=== PATIENT | male | born 1960 | race Caucasian/White ===

== ENCOUNTER 2016-12-31 09:19 | Emergency (ER) | payer BC ==
--- NOTE | ~2016-12-31 | CR181 ---
[facility] A Service of [facility] RADIOLOGY TEXT RESULTS PATIENT: NIKITA GAMINO LOCATION: SED : 58 UNIT #: [id number] AGE: [address]: Max Mcfarland MD SEX: M ORDER DR: [id number] [place] [id number] E MR#: [id number] Acc #: [id number] NAME: NIKITA GAMINO : 1960 SEX: M STUDY DATE/TIME: 12/31/2016 09:46 UNIT: SED ROOM: STUDY DESCRIPTION: CR Lumbar Spine 2 or 3 Views Attending Physician: Max Mcfarland M.D. Ordering Physician: Max Mcfarland M.D. Primary Care Physician: Randy Mcnulty M.D. MEDICAL IMAGING REPORT This report is preliminary unless electronic signature is present. EXAM Lumbar spine series 12/31/2016 0946 hours HISTORY 56-year-old man complaining of low back pain with bilateral leg pain for 2 weeks, swelling in right calf. No reported injury. COMPARISON None. FINDINGS AP and lateral views of the lumbar spine and a cone lateral view of the lumbosacral junction were performed. There is very subtle leftward scoliosis centered at L2. There is endplate spurring at the superior endplates of L4-L5. There is very mild vertebral body height loss at the superior endplate of L5 of indeterminate age. Acute compression fracture cannot be excluded. There is no other fracture or malalignment. IMPRESSION There is endplate spurring at the anterior-superior endplates of L4-L5. There is mild vertebral body height loss at the superior endplate of L5 which could indicate a compression fracture. This is of indeterminate age. There is no malalignment. STAT * RESULT Dictated by... Maren Castaneda M.D. [facility] A Service of [facility] RADIOLOGY TEXT RESULTS PATIENT: NIKITA GAMINO LOCATION: SED : 58 UNIT #: [id number] AGE: [address]: Max Mcfarland MD SEX: M ORDER DR: THIS IS AN ELECTRONICALLY VERIFIED REPORT Maren Castaneda M.D. at 12/31/2016 2:27 PM CURT/serina TD: 12/31/2016 10:11 JOB #: [id number] MEDICAL IMAGING REPORT Page 1 of 1
--- NOTE | ~2016-12-31 | US85 ---
[facility] Service of [facility] RADIOLOGY TEXT RESULTS PATIENT: NIKITA GAMINO LOCATION: SED : 58 UNIT #: [id number] AGE: [address]: Max Mcfarland MD SEX: M ORDER DR: [id number] [address] [address] [id number] E MR#: [id number] Acc #: [id number] NAME: NIKITA GAMINO : 1960 SEX: M STUDY DATE/TIME: 12/31/2016 12:07 UNIT: SED ROOM: STUDY DESCRIPTION: [facility] Attending Physician: Max Mcfarland M.D. Ordering Physician: Max Mcfarland M.D. Primary Care Physician: Randy Mcnulty M.D. MEDICAL IMAGING REPORT This report is preliminary unless electronic signature is present. EXAM Right lower extremity venous ultrasound, 12/31/16 HISTORY Right lower extremity edema for 2 weeks. FINDINGS The venous system of the right lower extremity was evaluated from the common femoral vein down to the trifurcation veins, and there is flow and compression at every level. A slightly prominent lymph nodes measuring 17 x 10 mm is identified in the right groin. IMPRESSION 1. There is a mildly prominent lymph node in the right groin with normal fatty hilum that measures 17 mm in maximum dimension. It is probably normal. 2. No evidence of deep venous thrombosis. Dictated by... Cristian Knott M.D. THIS IS AN ELECTRONICALLY VERIFIED REPORT Cristian Knott M.D. at 12/31/2016 3:37 PM MAMI/siddhartha TD: 12/31/2016 14:29 JOB #: [id number] [facility] A Service [facility] RADIOLOGY TEXT RESULTS PATIENT: NIKITA GAMINO LOCATION: SED : 58 UNIT #: [id number] AGE: [address]: Max Mcfarland MD SEX: M ORDER DR: MEDICAL IMAGING REPORT Page 1 of 1
[~2016-12-31 09:19] MED LIST: ORENCIA125 MG/1 M; VITAMIN B122500 MC1
== END 2016-12-31 13:59 | disposition home or self-care (01) ==
LOC: SED 09:19
DX: S39.012A Strain of muscle, fascia and tendon of lower back, initial encounter (principal); R60.0 Localized edema; X58.XXXA Exposure to other specified factors, initial encounter; Y92.9 Unspecified place or not applicable
CPT/HCPCS: 72100; 93971; 99284

== ENCOUNTER 2017-01-05 08:19 | Emergency (ER) | payer BC ==
--- NOTE | ~2017-01-05 | CT12 ---
[facility] A Service of [facility] RADIOLOGY TEXT RESULTS PATIENT: NIKITA GAMINO LOCATION: JOSIE : 58 UNIT #: [id number] AGE: [address]: Kishor Stout MD SEX: M ORDER DR: [id number] [facility] [address] [place], [place] [address] [id number] E MR#: [id number] Acc #: [id number] NAME: NIKITA GAMINO. : 1960 SEX: M STUDY DATE/TIME: 01/05/2017 9:41 UNIT: JOSIE ROOM: STUDY DESCRIPTION: CT Angio Abd Pelv Runoff Attending Physician: Kishor Stout M.D. Ordering Physician: Courtney Hopkins P.A.-C. Primary Care Physician: Randy Mcnulty M.D. MEDICAL IMAGING REPORT This report is preliminary unless electronic signature is present EXAM CTA AIF with contrast DATE 01/05/2017 HISTORY 56-year-old male with complaints of right lower extremity swelling for 6 days. Back pain for 8 days. COMPARISON Right lower extremity Doppler venous ultrasound 12/31/2016. No previous CTA or vascular study at this institution for comparison. PROCEDURE 2 mm axial images from the lung bases through the plantar surfaces of the feet after IV contrast administration in the arterial phase. 3D sagittal and coronal MIP reformatted images were obtained at a dedicated workstation. FINDINGS ARTERIAL ANATOMY: Normal caliber of the included descending thoracic aorta and abdominal aorta without aneurysm or dissection. No appreciable atherosclerotic plaquing is seen within the abdominal aorta, nor within the common iliac, internal or external iliac or common femoral arteries. No flow limiting stenosis is seen. The celiac artery, SMA, single bilateral renal arteries and MALIK are all widely patent. Bilateral common femoral, femoral, popliteal arteries and trifurcating vessels are patent to the level of the foot. No right or left lower extremity arterial flow-limiting stenosis or thrombosis or aneurysm is seen. [facility] A Service of [facility] RADIOLOGY TEXT RESULTS PATIENT: NIKITA GAMINO LOCATION: JOSIE : 58 UNIT #: [id number] AGE: [address]: Kishor Stout MD SEX: M ORDER DR: ADDITIONAL ABDOMEN FINDINGS: Mild emphysematous changes are present lung bases without consolidation. Not mentioned above, there does appear to be aneurysmal dilation of the aortic root measuring up to approximately 4.6 cm in the coronal plane. The liver, gallbladder, spleen, pancreas, and kidneys are within normal limits. Extensive diverticular changes are present within the colon without evidence of acute diverticulitis. The left adrenal gland is normal. 1.8 x 1.5 cm nonspecific right adrenal nodule is seen, of higher density than can be confirmed for an adenoma on this postcontrast exam. PELVIS FINDINGS: There is marked urinary bladder distension with fluid, with the urinary bladder distended to the level of the umbilicus. The prostate gland does not appear enlarged and the rectum is normal. LOWER EXTREMITY FINDINGS: There is a mildly prominent right inguinal lymph node which is nonspecific and may be reactive, measuring 1.5 x 1.1 cm. Right lower extremity edema is seen, diffusely, greatest in the region of the calf. There is a questionable right popliteal fossa cyst measuring 1.9 x 1.3 cm. IMPRESSION 1. Marked right extremity soft tissue swelling greatest in the calf region. 2. A probable small popliteal fossa cyst on the right measuring 1.3 x 1.9 cm. 3. Normal CTA of the abdomen and lower extremities. No aneurysm, flowing stenosis or thrombosis is identified. 4. Marked urinary bladder distension with fluid, but no perivesical inflammation or outlet obstructing abnormality is seen. 5. Probable reactive right inguinal lymph node measuring 1.7 x 1.1 cm. 6. 1.8 cm right adrenal nodule. Consider correlation to MRI abdomen without and with contrast adrenal mass protocol on a nonemergent basis. 7. Aneurysmal dilation of the aortic root at the sinuses of Valsalva measuring up to 4.6 cm. 8. Preliminary report was provided by Dr. Landers on 01/05/2017 at 12:06. Dictated by... Anushka Sainz M.D. THIS IS AN ELECTRONICALLY VERIFIED REPORT Anushka Sainz M.D. at 01/06/2017 4:20 AM LLBeto/williams TD: 01/06/2017 03:22 JOB #: [id number] MEDICAL IMAGING REPORT Page 1 of 1 COPY
--- NOTE | ~2017-01-05 | EKG ---
PATIENT: NIKITA GAMINO UNIT #: [id number] Ventricular Rate: 97 BPM Atrial Rate: 97 BPM P-R Interval: 190 ms QRS Duration: 94 ms Q-T Interval: 372 ms QTC Calculation(Bezet): 472 ms P [place]: 47 degrees Calculated R [place]: -7 degrees Calculated T [place]: -11 degrees Diagnosis Line: Normal sinus rhythm Diagnosis Line: Nonspecific ST and T wave abnormality Diagnosis Line: Abnormal ECG Diagnosis Line: No previous ECGs available Diagnosis Line: Confirmed by CHRISSY DICKEY MD ([id number]) on Diagnosis Line: 01/06/2017 8:51:15 AM INTERPRETING MD: JD
[2017-01-05 08:33] LABS: BASOPHIL% 0.4 % (0-2.5); DIFF IND NO; EOSINOPHIL% 0.6 % (0.0-7.0); HEMATOCRIT 34.8 % (38.0-50.0); HEMOGLOBIN 11.9 gm/dL (13.0-16.0); LYMPHOCYTE# 0.3 X10e3 (1.0-3.5); LYMPHOCYTE% 5.7 % (17.0-45.0); MEAN CELL VOLUME 94.6 FL (83-96); MEAN CORPUSCULAR HEMOGLOBIN 32.2 PG (28-34); MEAN CORPUSCULAR HGB CONC 34.1 g/dL (30-36); MEAN PLATELET VOLUME 7.2 FL (6.5-11.5); MONOCYTE# 0.4 X10e3 (0-1.0); MONOCYTE% 8.2 % (3.0-12.0); NEUTROPHIL# 4.5 X10e3 (1.5-7.1); NEUTROPHIL% 85.1 % (40-75); PLATELET COUNT 214 X10e3 (140-420); RED BLOOD COUNT 3.68 X10e (3.90-5.60); RED CELL DISTRIBUTION WIDTH 12.6 % (11.0-15.5); WHITE BLOOD COUNT 5.3 X10e3 (4.0-10.5)
[2017-01-05 08:45] LABS: POC - TROPONIN <0.05 ng/mL (<=0.05)
[2017-01-05 08:46] LABS: INR 1.2; PARTIAL THROMBOPLASTIN TIME 31.6 SECONDS (23.5-31.3); PROTHROMBIN TIME (PATIENT) 12.5 SECONDS (9.6-11.5)
[2017-01-05 09:07] LABS: ALBUMIN SERUM 3.5 g/dL (3.5-5.0); BILIRUBIN, DIRECT 0.5 mg/dL (0.0-0.2); BILIRUBIN,INDIRECT 1.3 mg/dL (0.0-0.9); BILIRUBIN,TOTAL 1.8 mg/dL (0.2-2.0); CALCIUM SERUM 8.6 mg/dL (8.4-10.2); CREATININE SERUM 1.1 mg/dL (0.6-1.4); GLOM FILT RATE Estimated 74.1 mL/min (>60); POTASSIUM 3.6 mmol/L (3.5-5.1); PROTEIN TOTAL SERUM 6.9 g/dL (6.0-8.3)
== END 2017-01-05 12:36 | disposition home or self-care (01) ==
LOC: CED 08:19
PROVIDERS: Physician Assistant
DX: L03.115 Cellulitis of right lower limb (principal); L03.116 Cellulitis of left lower limb; Z98.890 Other specified postprocedural states
CPT/HCPCS: 36415; 73706; 75635; 80048; 80076; 82550; 82553; 83880; 84484; 85025; 85610; 85730; 93005; 96374; 96375; 99284; J2270; J2405; Q9967

== ENCOUNTER 2017-01-10 11:28 | Inpatient (IN) | payer BC ==
--- NOTE | ~2017-01-10 | MR113 ---
[facility] A Service of [facility] RADIOLOGY TEXT RESULTS PATIENT: NIKITA GAMINO LOCATION: [facility] 575-01 : 58 UNIT #: [id number] AGE: [address]: Galileo Acevedo MD SEX: M ORDER DR: [id number] [facility] [address] [place], [place] [address] [id number] I MR#: [id number] Acc #: [id number] NAME: NIKITA GAMINO : 1960 SEX: M STUDY DATE/TIME: 01/15/2017 17:40 UNIT: [facility] ROOM: [facility] STUDY DESCRIPTION: MR Lumbar Wo Contrast Attending Physician: Galileo Acevedo M.D. Ordering Physician: Galileo Acevedo M.D. Primary Care Physician: Randy Mcnulty M.D. MRI CENTER REPORT This report is preliminary unless electronic signature is present. EXAM MRI of the lumbar spine without contrast HISTORY Complains of low back pain x1 week from lying down. History of gout within the feet. History of chronic back pain and intermittent numbness in legs. Abnormal x-ray lumbar spine suggests L5 compression fracture. FINDINGS Multiplanar multiecho imaging was performed of the lumbar spine utilizing a high field magnet dedicated protocol. Examination demonstrates abnormal marrow signal throughout the lumbar spine with cellular marrow possibly representing red marrow hyperplasia may be related to chronic disease. Correlate clinically for possible anemia. Normal spinal alignment. Small amount of marrow edema noted in the superior aspect of the L2 vertebral body. There are compression fractures involving the T12 and L5 vertebral bodies with about 40% loss of the central vertebral body height at T12 and close to 50% loss of central vertebral body height at L5. These represent biconcave compression fractures and suggests underlying osteoporosis. There is a small amount of edema involving both the T12 and L5 vertebral bodies which may suggest subacute fractures. There is normal termination of the conus. At T12-L1 the disc space is maintained. No spinal or foraminal stenosis. At L1-2 the disc space is maintained. No spinal or foraminal stenosis. At L2-3 the disc space is maintained. No spinal or foraminal stenosis. At L3-4 disc space is maintained, no spinal or foraminal stenosis. At L4-5 mild circumferential disc bulge with a slightly more prominent STS. [facility] A Service of [facility] RADIOLOGY TEXT RESULTS PATIENT: NIKITA GAMINO LOCATION: [facility] 575-01 : [birth year] UNIT #: [id number] AGE: [address]: Galileo Acevedo MD SEX: M ORDER DR: right foraminal and extraforaminal component. This may impinge the exiting right L4 nerve root. At L5-S1 the disc space is maintained. No spinal or foraminal stenosis. Posterior elements unremarkable. Paravertebral soft tissues unremarkable. IMPRESSION 1. T12 and L5 biconcave compression fracture deformities. Presence of some marrow edema suggests that these may be subacute in nature. I suspect these are on the basis of underlying osteoporosis, possibly related to chronic alcoholism. 2. Diffuse cellular marrow suggests red marrow hyperplasia and may be related to chronic alcoholism. Correlate for other etiologies for anemia. 3. Mild circumferential disc bulging L4-5 with a slightly greater right foraminal and extraforaminal component could lead to impingement of the exiting right L4 nerve root. Dictated by... Yaneth Prabhakar M.D. THIS IS AN ELECTRONICALLY VERIFIED REPORT Yaneth Prabhakar M.D. at 01/16/2017 10:33 PM Callie TD: 01/16/2017 04:39 JOB #: [id number] MRI CENTER REPORT Page 1 of 1 COPY
--- NOTE | ~2017-01-10 | US67 ---
[facility] A Service of [facility] RADIOLOGY TEXT RESULTS PATIENT: NIKITA GAMINO LOCATION: [facility] [address] : 58 UNIT #: [id number] AGE: [address]: Marissa Meyer MD SEX: M ORDER DR: [id number] [facility] [address] [place], [place] [address] [id number] I MR#: [id number] Acc #: [id number] NAME: NIKITA GAMINO. : 1960 SEX: M STUDY DATE/TIME: 01/11/2017 14:13 UNIT: [facility] ROOM: [facility] STUDY DESCRIPTION: US Gallbladder Attending Physician: Marissa Meyer M.D. Ordering Physician: Marissa Meyer M.D. Primary Care Physician: Randy Mcnulty M.D. MEDICAL IMAGING REPORT This report is preliminary unless electronic signature is present EXAM Right upper quadrant abdominal ultrasound. INDICATIONS Jaundice and back pain for the past 2 weeks. PROCEDURE Pollock-scale and Doppler imaging, right upper quadrant of the abdomen. COMPARISON 01/03/2015 FINDINGS Liver is approximately 12.7 cm in length. No liver mass is seen on submitted images. Right kidney measures 9.4 cm. Pancreas is obscured by bowel gas and not well seen. The gallbladder is not well seen on this study. IMPRESSION Pancreas and gallbladder are not well seen on this study. Otherwise, no definite acute findings. Dictated by... Juarez Cornelius M.D. THIS IS AN ELECTRONICALLY VERIFIED REPORT Juarez Cornelius M.D. at 01/14/2017 7:45 AM ALCIDES/akil TD: 01/11/2017 17:53 JOB #: [id number] [facility] A Service [facility] RADIOLOGY TEXT RESULTS PATIENT: NIKITA GAMINO LOCATION: [facility] 575 : 58 UNIT #: [id number] AGE: [address]: Marissa Meyer MD SEX: M ORDER DR: MEDICAL IMAGING REPORT Page 1 of 1 COPY
--- NOTE | ~2017-01-10 | XA231 ---
[facility] A Service [facility] RADIOLOGY TEXT RESULTS PATIENT: NIKITA GAMINO LOCATION: [facility] 575-01 : 59 UNIT #: [id number] AGE: [address]: Galileo Acevedo MD SEX: M ORDER DR: [id number] [place] [id number] [facility]. [place], [place] [address] [id number] I MR#: [id number] Acc #: [id number] NAME: NIKITA GAMINO. : 1960 SEX: M STUDY DATE/TIME: 01/16/2017 12:42 UNIT: [facility] ROOM: [facility] STUDY DESCRIPTION: XA Consult Attending Physician: Galileo Acevedo M.D. Ordering Physician: Galileo Acevedo M.D. Primary Care Physician: Randy Mcnulty M.D. MEDICAL IMAGING REPORT This report is preliminary unless electronic signature is present CONSULT HISTORY OF PRESENT ILLNESS This is a 56-year-old male who presented to the emergency room with worsening right lower extremity pain and swelling associated with exertional chest pain. He states he has had intermittent low back pain and pain radiating to both hips for about 3 weeks now. The pain is very intermittent and only occurs during sudden movements, and he states the pain is only temporary. The pain, he states, is in his low back and also radiates to his hip regions. He is not in constant pain. The pain does not limit his mobility and does not limit him from his daily activities. PAST MEDICAL HISTORY Gout PAST SURGICAL HISTORY [place] tooth extraction HOME MEDICATION 1. Orencia 40 mg p.o. once a day. 2. Vitamin B-12 500 mg p.o. once a day. 3. [place], 7.5/325 mg 1 tablet p.o. every 4 hours as needed for pain. 4. Clindamycin, 300 mg p.o. ever 6 hour. ALLERGIES No known drug allergies. SOCIAL HISTORY Patient denies smoking, alcohol use, or illicit drug use. FAMILY HISTORY Noncontributory [facility] A Service [facility] RADIOLOGY TEXT RESULTS PATIENT: NIKITA GAMINO LOCATION: [facility] 575- : 58 UNIT #: [id number] AGE: [address]: Galileo Acevedo MD SEX: M ORDER DR: PRIOR IMAGING STUDIES Patient has an MRI of the lumbar spine from 01/15/2017. This demonstrates compression deformities of the T12 and L5 vertebral bodies without any real significant marrow edema. REVIEW OF SYSTEMS The patient has occasional low back pain, as reported in history of present illness. All other systems were reviewed and were negative. PHYSICAL EXAM LUNGS: The lungs are clear to auscultation bilaterally. HEART: Heart rate is regular. SPINE: Palpation of the patient's spine demonstrated no evidence of any point tenderness with specific attention to the lower thoracic spine and the lumbar spine. There was no tenderness to palpation. IMPRESSION/PLAN This is a 56-year-old male with occasional low back pain radiating to the hips, which is brought on by sudden movements and is alleviated quickly following cessation of these movements. He did have an MRI showing compression deformities of T12 and L5; however, they appear to be more chronic in nature. There is no definite acute compression fracture. The patient also does not have any tenderness to palpation of his spinal column on physical exam. Based on the intermittent nature of the patient's pain, the lack of any tenderness on physical exam, and the more chronic-appearing compression deformities on the MRI, kyphoplasty at this point is not indicated, as it would be of no benefit to this patient. I explained this to the patient in great detail, and he understands. Thank you for the consult. Dictated by... Dm Prabhakar M.D. THIS IS AN ELECTRONICALLY VERIFIED REPORT Dm Prabhakar M.D. at 01/17/2017 4:49 PM ALEXX/akil TD: 01/16/2017 19:22 JOB #: [id number] MEDICAL IMAGING REPORT Page 1 of 1 COPY
--- NOTE | ~2017-01-10 | EKG ---
PATIENT: NIKITA GAMINO UNIT #: [id number] Ventricular Rate: 54 BPM Atrial Rate: 54 BPM P-R Interval: 152 ms QRS Duration: 84 ms Q-T Interval: 436 ms QTC Calculation(Bezet): 413 ms P [place]: -4 degrees Calculated R [place]: 57 degrees Calculated T [place]: 33 degrees Diagnosis Line: Sinus bradycardia with sinus arrhythmia Diagnosis Line: Otherwise normal ECG Diagnosis Line: No previous ECGs available Diagnosis Line: Confirmed by MATEUS NO MD ([id number]) on 01/13/2017 Diagnosis Line: 8:28:42 PM INTERPRETING MD: ONEAL DELANEY
--- NOTE | ~2017-01-10 | EKG ---
PATIENT: NIKITA GAMINO UNIT #: [id number] Ventricular Rate: 82 BPM Atrial Rate: 82 BPM P-R Interval: 190 ms QRS Duration: 102 ms Q-T Interval: 416 ms QTC Calculation(Bezet): 486 ms P [place]: 52 degrees Calculated R [place]: -20 degrees Calculated T [place]: 3 degrees Diagnosis Line: Normal sinus rhythm Diagnosis Line: Nonspecific ST abnormality Diagnosis Line: Prolonged QT Diagnosis Line: Abnormal ECG Diagnosis Line: When compared with ECG of 11-JAN-2017 08:01, Diagnosis Line: (unconfirmed) Diagnosis Line: Vent. rate has increased BY 28 BPM Diagnosis Line: Questionable change in QRS duration Diagnosis Line: Confirmed by MATEUS NO MD ([id number]) on 01/13/2017 Diagnosis Line: 8:38:40 PM INTERPRETING MD: ONEAL DELANEY
--- NOTE | ~2017-01-10 | CT16 ---
[facility] A Service [facility] RADIOLOGY TEXT RESULTS PATIENT: NIKITA GAMINO LOCATION: [facility] 575-01 : 58 UNIT #: [id number] AGE: [address]: Marissa Meyer MD SEX: M ORDER DR: [id number] [place] [id number] [facility]. [place], [place] [address] [id number] E MR#: [id number] Acc #: [id number] NAME: NIIKTA GAMINO : 1960 SEX: M STUDY DATE/TIME: 01/10/2017 16:42 UNIT: [facility] ROOM: STUDY DESCRIPTION: CT Angio Chest for PE Attending Physician: Grabiel Sanchez D.O. Ordering Physician: Grabiel Sanchez D.O. Primary Care Physician: Randy Mcnulty M.D. MEDICAL IMAGING REPORT This report is preliminary unless electronic signature is present EXAM CT scan of the chest with pulmonary embolus protocol. INDICATION Right leg swelling for 4 weeks with elevated D-dimer and shortness of air. Chest pain. TECHNIQUE The patient was given 80 mL of Isovue 370 and spiral imaging was performed through the chest and 3D reconstructions of the pulmonary arteries were generated. This CT exam was performed with one or more of the following radiation dose reduction techniques: automatic exposure control, adjustment of mA and/or kV according to patient size, and iterative reconstruction. FINDINGS The aorta is normal in size and there is no dissection. There is optimal opacification of the pulmonary arteries and there is no CT evidence of pulmonary embolus. The visualized portion of the upper abdomen are unremarkable except for a 1.5 cm right adrenal nodule. The lungs are clear. The bones are unremarkable. IMPRESSION 1. 1.5 cm right adrenal nodule which is likely a benign finding, but correlation with old studies and follow-up imaging in 6 months is suggested. 2. No CT evidence of pulmonary embolus or aortic dissection. 3. The lungs are clear. Dictated by... [facility] A Service of [facility] RADIOLOGY TEXT RESULTS PATIENT: NIKITA GAMINO LOCATION: [place] [address] : 58 UNIT #: [id number] AGE: [address]: Marissa Meyer MD SEX: M ORDER DR: Cristian Knott M.D. THIS IS AN ELECTRONICALLY VERIFIED REPORT Cristian Knott M.D. at 01/11/2017 3:28 PM MAMI/yanet TD: 01/10/2017 20:06 JOB #: [id number] MEDICAL IMAGING REPORT Page 1 of 1 COPY
--- NOTE | ~2017-01-10 | TOC ---
Unit #: [id number] #: [id number] Patient: NIKITA GAMINO [id number] [facility] [address] [place], [place] [address] [id number] I MR#: [id number] NAME: NIKITA GAMINO ROOM: [facility] Age: 56 Sex: M Admission Date: 01/10/2017 : 1960 Attending Physician: Marissa Meyer M.D. Primary Care Physician: Randy Mcnulty M.D. TRANSFER OF CARE SUMMARY DATE January 14, 2017. DIAGNOSIS ON ADMISSION Chest pain. HOSPITAL COURSE A 56-year-old male was admitted to [facility] with exertional chest pain. Details are as per admission H and P. Patient was seen by cardiology, Dr. Lee, in consultation. UT was ruled out. Patient will have a cardiac cath done today. Right lower extremity cellulitis: Patient had erythema and bruising of right calf. Patient was treated with antibiotics. Infectious disease has seen patient in consultation and has switched to Keflex. They have also ordered ultrasound to rule out ruptured popliteal cyst. Acute urinary retention: Patient has a Choi catheter. Dr. Lee has ordered a 24-hour urine protein. Patient could have a voiding trial tomorrow depending on his condition. Jaundice: The patient's total bilirubin is normal, 1.7. Alcohol abuse: The patient has history of alcohol abuse. He was encouraged to follow with [facility] on discharge. Right adrenal nodule: On the CT, it looks benign. Patient is advised to follow up with family doctor. Further hospital course will be dictated by my partner. Dictated by... Sushant Christine/marlin TD: 01/14/2017 09:28 JOB #: [id number] Unit #: [id number] #: [id number] Patient: NIKITA GAMINO TRANSFER OF CARE SUMMARY Page 1 of 1 X Jessie Funez MD TRANSFER OF CARE SUMMARY
--- NOTE | ~2017-01-10 | EKG ---
PATIENT: NIKITA GAMINO UNIT #: [id number] Ventricular Rate: 97 BPM Atrial Rate: 97 BPM P-R Interval: 178 ms QRS Duration: 98 ms Q-T Interval: 368 ms QTC Calculation(Bezet): 467 ms P [place]: 54 degrees Calculated R [place]: -8 degrees Calculated T [place]: 48 degrees Diagnosis Line: Normal sinus rhythm Diagnosis Line: Normal ECG Diagnosis Line: When compared with ECG of 12-JAN-2017 07:51, Diagnosis Line: No significant change was found Diagnosis Line: Confirmed by CHRISSY DICKEY MD ([id number]) on Diagnosis Line: 01/14/2017 11:29:24 PM INTERPRETING MD: JD
--- NOTE | ~2017-01-10 | CR72 ---
[facility] A Service of [facility] RADIOLOGY TEXT RESULTS PATIENT: NIKITA GAMINO LOCATION: [facility] 575-01 : 58 UNIT #: [id number] AGE: [address]: Marissa Meyer MD SEX: M ORDER DR: [id number] [facility] [address] [facility]. [place], [place] [address] [id number] MR#: [id number] Acc #: [id number] NAME: NIKITA GAMINO. : 1960 SEX: M STUDY DATE/TIME: 01/11/2017 09:57 UNIT: [facility] ROOM: [facility] STUDY DESCRIPTION: CR Chest Single View Portable Attending Physician: Marissa Meyer M.D. Ordering Physician: Akosua Lau A.P.R.N. Primary Care Physician: Randy Mcnulty M.D. MEDICAL IMAGING REPORT This report is preliminary unless electronic signature is present EXAM Chest portable 01/11/2017 0957 hours HISTORY 56-year-old man complaining of anterior chest pain and shortness of air for 4 weeks. History of aortic aneurysm. COMPARISON CT chest 01/10/2017 FINDINGS Upright portable film demonstrates normal heart size with stable tortuous and ectatic aorta. The lungs are clear and there are no effusions. IMPRESSION Heart size is normal with stable tortuous ectatic aorta. The lungs are clear and there are no effusions. Dictated by... Maren Castaneda M.D. THIS IS AN ELECTRONICALLY VERIFIED REPORT Maren Castaneda M.D. at 01/11/2017 2:29 PM CURT/stepan TD: 01/11/2017 12:53 JOB #: [id number] MEDICAL IMAGING REPORT Page 1 of 1 COPY
--- NOTE | ~2017-01-10 | US49 ---
[facility] A Service of [facility] RADIOLOGY TEXT RESULTS PATIENT: NIKITA GAMINO LOCATION: [facility] 575-01 : 58 UNIT #: [id number] AGE: [address]: Galileo Acevedo MD SEX: M ORDER DR: [id number] [facility] [address] [facility]. [place], [place] [address] [id number] MR#: [id number] Acc #: [id number] NAME: NIKITA GAMINO. : 1960 SEX: M STUDY DATE/TIME: 01/14/2017 8:07 UNIT: [facility] ROOM: [facility] STUDY DESCRIPTION: US Extremity Non Vasc Complete Attending Physician: Jessie Funez M.D. Ordering Physician: Marissa Meyer M.D. Primary Care Physician: Randy Mcnulty M.D. MEDICAL IMAGING REPORT This report is preliminary unless electronic signature is present EXAM Ultrasound extremity, nonvascular complete, 01/14/2017. HISTORY Pain behind right knee and right medial calf x5 weeks. Evaluate for Orozco cyst and hematoma. No recent injury of the leg. FINDINGS Real time ultrasonography of the right popliteal fossa shows no abnormal fluid collection. No indication of synovial/Orozco cyst or hematoma. In evaluating the more distal medial calf and ankle region in area of discomfort described by patient, no definite abnormality seen along the medial aspect, specifically in the area of patient's pain. Along the left lateral ankle there is an ovoid hypoechoic structure of unclear exact etiology. It appears to be immediately adjacent to the bone and measures approximately 2.5 cm x 1.1 cm x 4.5 cm on the images provided. This could represent some form of thickened tendon or ligament. It is best further evaluated with cross-sectional imaging such as MRI or CT. IMPRESSION 1. No synovial-Orozco cyst in popliteal fossa. No abnormal fluid collection. 2. Along the lateral aspect of the ankle immediately superficial to the bone, presumed to be the distal fibula, there is an ovoid hyperechoic structure measuring 2.5 cm x 1.1 cm x 4.5 cm. exact etiology unclear. Possibly thickened ligament or tendon. Best further evaluated with MRI if the patient is a candidate or CT. Patient indicates that the area of pain is more medial than this structure. Dictated by... [facility] A Service of [facility] RADIOLOGY TEXT RESULTS PATIENT: NIKITA GAMINO LOCATION: [place] [address] : 58 UNIT #: [id number] AGE: [address]: Galileo Acevedo MD SEX: M ORDER DR: Varghese Lyon M.D. THIS IS AN ELECTRONICALLY VERIFIED REPORT Varghese Lyon M.D. at 01/15/2017 3:50 PM STEVAN/rico TD: 01/14/2017 13:46 JOB #: [id number] MEDICAL IMAGING REPORT Page 1 of 1 COPY
--- NOTE | ~2017-01-10 | CO ---
Unit #: [id number] #: [id number] Patient: NIKITA GAMINO [id number] [place] [address] [facility]. [place], [place] [address] [id number] MR#: [id number] NAME: NIKITA GAMINO ROOM: 575 Age: 56 Sex: M Admission Date: 01/10/2017 : 1960 Attending Physician: Marissa Meyer M.D. Primary Care Physician: Randy Mcnulty M.D. Consultation Date: 01/11/2017 CONSULTATION REPORT REASON FOR CONSULTATION Atypical chest pain and lower extremity edema. HISTORY OF PRESENT ILLNESS This is a 56-year-old white male with no known significant health history, just has some problems with gout, has been dealing with his lower extremity swelling and pain for about 3 weeks. The patient had been seen by his primary care physician and had a CTA with runoff that showed a marked right extremity soft tissue swelling greatest in the calf region, but no DVT. 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 The patient had an appointment to see a vascular surgeon and also the [facility] as an outpatient, but he came in the ER today because he was complaining of pain and swelling in his bilateral lower extremities in addition to having some lower back pain. He says he does have some chest tightness especially when he coughs, which he has a nonproductive dry cough. He denies any palpitations, dizziness, presyncope, or syncope. The patient had been to the emergency room couple of times before seeing Dr. Mcnulty. He was started on oral clindamycin for what he was told was probably cellulitis in the right lower extremity. The patient did stumble and hit his left foot and injured his 3 toes. He denies any fever or chills, and as mentioned as nonproductive cough. In the emergency room, the patient's blood pressure was 126/74, heart rate was 84, respirations 16, temperature 98.0, O2 saturations 100% on room air. His chest x-ray shows heart is normal, with stable, torturous, ectatic aorta. The lungs are clear. No effusions. CT of the chest with PE protocol shows 1.5 cm right adrenal nodule, which is likely benign and no evidence of PE or aortic dissection. The lungs are clear. He did have an outpatient CT of abdomen and pelvis, which mentioned showed 4.6 aneurysmal dilatation in the aortic root and 1.8 cm right adrenal nodule. His EKG shows normal sinus rhythm. He has left ventricular hypertrophy and some T-wave inversion in inferior leads. Her initial cardiac enzymes are negative. His creatinine is 1.0, his potassium is 3.8 and this morning 3.3. His BNP is 23. WBCs are 5.1, his hemoglobin is down at 9.3. The patient has been started on normal saline at 75 mL an hour. Cardiology has been asked to evaluate the patient. He has since being treated for cellulitis. PAST MEDICAL HISTORY 1. Recently told 4.6 cm aneurysmal dilatation of the aortic root and right inguinal lymph node and 1.8 cm right adrenal nodule on her CT scan Unit #: [id number] #: [id number] Patient: NIKITA GAMINO on 01/05/2017. 2. Recently told anemia. 3. History of gout in the right lower extremity. 4. No stress or cardiac cath. 5. Nonsmoker. 6. Alcohol abuse, drinks beer daily. PAST SURGICAL HISTORY None. SOCIAL HISTORY The patient lives in his home. The patient has . He is retired. No tobacco abuse, but drinks several beers a day. He has been doing that for many years. No illicit drug abuse. FAMILY HISTORY His father had repair of aortic aneurysm, but no coronary artery disease reported in both parents. He is only child. REVIEW OF SYSTEMS See details in HPI. PHYSICAL EXAMINATION GENERAL: Mr. Gamino is a 56-year-old white male, he does appear to have some jaundice. VITAL SIGNS: Blood pressure is 126/74, he got as low as 96/50; today this morning, it is 144/86; respirations 16; heart rate is 92; temperature is 97.5, O2 saturations 93% on room air. NECK: Trachea midline. No thyromegaly or lymphadenopathy. Normal carotid upstrokes. No jugular venous distention. HEART: S1, S2. Regular rate and rhythm. He has a systolic murmur over the aortic region left sternal border. LUNGS: Diminished, but clear. ABDOMEN: Slightly obese, distended, slightly tender with palpating. EXTREMITIES: Pedal pulses are very faint due to 2+ pedal edema greater in the right. He has some swelling and erythematous and some bruising on his right lower extremity. NEUROLOGIC: No focal deficits. DIAGNOSTIC STUDIES LABORATORY RESULTS: Glucose is 111, BUN 20, creatinine 1.0, eGFR is 83.2, sodium 127, potassium is 3.3, chloride is 95, CO2 23, uric acid 6.1, calcium 7.9, total protein 7.0, albumin 3.3, bilirubin total 2.4, bilirubin direct 0.6, AST 24, ALT 17, alkaline phosphatase is 78. BNP is 23. WBCs 5.1, hemoglobin 8.2, hematocrit 24.1, platelets 263. Initial cardiac enzymes; CK-MB is 1.2, troponin less than 0.05; CK-MB is 1.1, troponin less than 0.05. INR is 1.4. D-dimer is 5761. IMAGING STUDIES: On 12/31/2016, right lower extremity venous Doppler study shows prominent lymph node in the right groin with no evidence of DVT. CTA of the abdomen and pelvis with AIF with contrast for his right lower extremity swelling showed marked right extremity soft tissue swelling greatest in the calf, probable small popliteal fossa cyst on the right. No aneurysm or PE. 1. Marked urinary bladder distention. Unit #: [id number] #: [id number] Patient: NIKITA GAMINO 2. Right inguinal lymph node. 3. 1.8 cm right adrenal nodule. 4. Aneurysmal dilatation of the aortic root at the sinuses of Valsalva measuring up to 4.[address] of the chest with PE protocol shows a 1.5 cm right adrenal nodule which is likely benign and lungs are clear. No PE or dissection. Chest x-ray shows heart is normal with stable, torturous, ectatic aorta and the lungs are clear. No effusions. CARDIOVASCULAR STUDIES: EKG shows normal sinus rhythm with left ventricular hypertrophy, nonspecific ST-T wave abnormalities. IMPRESSION 1. Bilateral lower extremity edema especially in the right lower extremity calf regions bruising, swelling, and erythematous. Questionable Orozco cyst. 2. Probable cellulitis. 3. Atypical chest pain. 4. Questionable aortic regurgitation on exam. 5. Anemia. 6. Hypokalemia and hyponatremia. 7. Jaundice, questionable etiology. 8. Alcohol abuse. 9. He has a 1.8 cm right adrenal nodule and he had a 4.6 cm aneurysmal dilatation of the aortic root. 10. Nonsmoker. 11. Alcohol abuse. 12. History of gout. PLAN 1. Cardiology consult to assist with evaluation and management. 2. On exam, the patient has no signs or symptoms of unstable angina. He had some chest tightness. He said that is when he was trying to walk and his legs were painful and he just had some substernal tightness that did not last. His BNP is 23. Chest x-ray does not show any congestive heart failure. We will obtain a 2D echo to evaluate LV function and valves and to evaluate for aortic regurgitation. We will supplement his potassium with 40 mEq x1 now and then start him on normal saline with 40 of KCl and 2 g of Mag sulfate. 3. Obtain urinalysis and evaluate. 4. The patient appears to be jaundiced and coagulopathy, questionable liver disease. 5. Ultrasound of his right upper quadrant to evaluate his gallbladder has been ordered. 6. Infectious Disease has been consulted to evaluate the patient and treat for right leg lower extremity cellulitis. 7. The patient was given a low dose of Lasix 20 mg IV once a daily. 8. Continue to monitor cardiac enzymes and EKG. The patient may need ischemic heart disease workup. 9. Obtain a 2D echo to evaluate LV function and valves especially since he drinks alcohol. 10. Further recommendations pending per Dr. Bates. Thank you very much for allowing us assist in the care. Dictated by... Akosua Lau, Kiran.P.R.N. for Geo Bates M.D. Unit #: [id number] #: [id number] Patient: NIKITA GAMINO CEC/modl TD: 01/12/2017 07:10 JOB #: [id number] CC: Randy Mcnulty M.D. [facility] CONSULTATION REPORT Page 1 of 1 X Akosua Lau APRN CONSULTATION REPORT
--- NOTE | ~2017-01-10 | CO ---
Unit #: [id number] #: [id number] Patient: NIKITA GAMINO [id number] [address] [place], [place] [address] [id number] MR#: [id number] NAME: NIKITA GAMINO ROOM: 575 Age: 56 Sex: M Admission Date: 01/10/2017 : 1960 Attending Physician: Marissa Meyer M.D. Primary Care Physician: Randy Mcnulty M.D. Consultation Date: 01/11/2017 CONSULTATION REPORT The patient was admitted to Dr. Meyer. REASON FOR CONSULTATION Cellulitis in right lower extremity. HISTORY OF PRESENT ILLNESS This is a 56-year-old male, who recently had a workup with a CTA of the chest and abdomen with runoff of the lower extremities, which did show some swelling in the right calf region with cyst. Patient was also noted to have some aneurysmal dilatation of the aortic root and is following up with vascular as an outpatient. Patient, however, came to the emergency room as he reported some exertional chest pain. The patient is also noted to have some lower extremity pain and swelling and he was given clindamycin. Patient was taking the clindamycin but did not have significant results. He has been back and forth to the emergency room it appears per the H and P. ID was asked to evaluate for questionable management and cellulitis. In discussion with patient, he denies any fever or chills at home. He denies any nausea, vomiting, diarrhea, significant pain at this time except for lower extremity pain which he reports sometimes is on his left leg but has mainly been on his right leg. He denies any significant trauma to his right lower extremity. PAST MEDICAL HISTORY Includes gout, otherwise no significant past medical history. PAST SURGICAL HISTORY Includes wisdom teeth removal. MEDICATIONS The patient was previously on clindamycin prior to admission to the hospital. He is currently on Kefzol. For other medications, please refer to patient's MAR. ALLERGIES No known drug allergies. SOCIAL HISTORY No alcohol or tobacco or drug use per the patient. REVIEW OF SYSTEMS The patient denies any fevers, chills, nausea, vomiting, diarrhea. Denies any current chest pain or shortness of breath. Does report pain right greater than left lower extremity without any trauma or wound. Unit #: [id number] #: [id number] Patient: NIKITA GAMINO PHYSICAL EXAMINATION VITAL SIGNS: Temperature is 97.5, pulse 93, blood pressure 144/86, respiratory rate 11. GENERAL: This no apparent distress male does appear somewhat jaundiced. HEENT: His pupils are equal. NECK: His neck is supple. CARDIOVASCULAR: S1, S2. Regular rate and rhythm. PULMONARY: Clear to auscultation bilaterally with no wheezes or rhonchi noted. ABDOMEN: Positive bowel sounds. Soft, no significant tenderness. EXTREMITIES: Bilateral lower extremity edema, right greater than left. He has some posterior calf ecchymosis that does not appear like classic cellulitis. He has some cracked skin on his toes and web spaces but no open wounds. DIAGNOSTIC STUDIES LABORATORY: BUN 20, creatinine 1, sodium 127, potassium 3.3, chloride 95, CO2 of 23. Bilirubin 2.4, AST 24, ALT 17, alkaline phosphatase 78. INR is 1.4. White blood cell count 5.1, hemoglobin 8.2, hematocrit 24.1, platelets 263,000. There is no current microbiology data. IMAGING: December 31, ultrasound of the lower extremities does not show any evidence of DVT. CT scan angiogram of the abdomen with runoff showed right extremity soft tissue swelling greatest in the calf region with small popliteal fossa cyst on the right side. Normal CTA of the abdomen and lower extremities. No aneurysm. No CTA evidence of pulmonary embolus or aortic dissection. There is a 1.5 cm adrenal nodule. IMPRESSION This is a 56-year-old male with recent CT angiogram with runoff that showed some swelling in the right calf but also showed some cyst in the right popliteal region. The patient reports both left and right lower extremity swelling but significant swelling and discoloration of the right lower calf. The patient was admitted for exertional chest pain as well and workup for cirrhosis and right upper quadrant is being done by the primary team. Patient is without fever and chills at home. He does not have any significant firmness or classic evidence of cellulitis and his posterior calf appears more like ecchymosis and with cyst seen on the CTA, concern for ruptured Orozco's cyst. It is difficult to exclude cellulitis at this time. No objection to IV Kefzol. Will recommend to elevate leg on pillow while in bed. Will discuss with Dr. Ad Voss but patient does not appear septic or toxic. Thank you for allowing us to participate in the care of this patient. Further recommendations pending patient's clinical course. Dictated by... Jeanna Carmen A.P.R.N. for Ad Voss M.D. [facility]/ Unit #: [id number] #: [id number] Patient: NIKITA GAMINO Francisco TD: 01/11/2017 12:21 JOB #: [id number] CONSULTATION REPORT Page 1 of 1 X X CONSULTATION REPORT
--- NOTE | ~2017-01-10 | HP ---
Unit #: [id number] #: [id number] Patient: NIKITA GAMINO [id number] [facility] [address] [facility]. [place], [place] [address] [id number] MR#: [id number] NAME: NIKITA GAMINO ROOM: Age: 56 Sex: M Admission Date: 01/10/2017 : 1960 Attending Physician: Grabiel Sanchez D.O. Primary Care Physician: Randy Mcnulty M.D. HISTORY AND PHYSICAL CHIEF COMPLAINT Exertional chest pain. HISTORY OF PRESENT ILLNESS The patient is a 56-year-old male with history of gout in right lower extremity, brought to the emergency room with worsening right lower extremity pain and swelling associated with exertional chest pain. The patient was seen by the primary care physician and had a CTA with the runoff that showed marked right extremity soft tissue swelling, greatest in the calf region. Aneurysmal dilation of the aortic root at the sinus of Valsalva measuring up to 4.6 cm. The patient was scheduled to follow up with the vascular surgeon and has been followed with the [facility] as an outpatient. The patient presented to the emergency room with the exertional chest pain with movements. The patient was seen in the emergency room and was prescribed oral clindamycin. The patient said the clindamycin is helping but it is not to the point that the patient has relief. The patient denies any dizziness, denies any trauma. The patient is being admitted for the above reasons with multiple ER visits for the lower extremity swelling and awaiting the vascular and cardiology followup as outpatient. PAST MEDICAL HISTORY History of gout. PAST SURGICAL HISTORY History of wisdom teeth. HOME MEDICATIONS 1. Orencia. 2. Vitamin B12. 3. Clindamycin. 4. Hydrocodone. ALLERGIES No known drug allergies. SOCIAL HISTORY No history of smoking, alcohol or illicit drug abuse. FAMILY HISTORY Reviewed and none. PHYSICAL EXAMINATION VITAL SIGNS: Temperature 98, pulse 84, respiratory rate 16, blood Unit #: [id number] #: [id number] Patient: NIKITA GAMINO pressure 126/74, saturating 100% at room air. GENERAL: Patient is lying on the bed not in acute distress. HEENT: Atraumatic, normocephalic. Pupils equal, round, and reactive to light and accommodation. Extraocular movements are intact. NECK: Supple. LUNGS: Decreased air entry at the bases. HEART: Regular rate and rhythm. ABDOMEN: Soft, positive bowel sounds. EXTREMITIES: No cyanosis, no clubbing. Positive for swelling of the right lower extremity. Also tenderness at the right calf muscles. NEUROLOGIC: Alert, awake, oriented. No gross focal motor deficit. DIAGNOSTIC STUDIES LABORATORY: Glucose 106, BUN 22, creatinine 1, sodium 128, potassium 3.8, chloride 94, bicarb 21, uric acid 6.1, calcium 8.4, albumin 3.3, total bilirubin 2.4, AST 24, ALT 17, alkaline phosphatase 78. BNP 61. INR 1.4. Troponin less than 0.05. WBC 7.4, hemoglobin 9.3, hematocrit 27.2, platelets 274, neutrophils 83.5. CARDIOVASCULAR: EKG shows normal sinus rhythm at a rate of 92 beats per minute. QTC of 477. ASSESSMENT AND PLAN 1. Exertional chest pain. 2. Aneurysm of the aortic root. 3. Right lower extremity cellulitis. 4. Hyponatremia. PLAN 1. Admit patient as observation with telemetry. 2. Continue with serial troponins to rule out ischemia. 3. Check echocardiogram. 4. Cardiology evaluation and Vascular evaluation for the aortic root dilatation. 5. Repeat the labs again in the morning. 6. Continue with IV antibiotics with Ancef. 7. Further recommendations will follow as more lab results become available. Dictated by Sushant Robins TD: 01/10/2017 19:53 JOB #: [id number] Unit #: [id number] #: [id number] Patient: NIKITA GAMINO HISTORY AND PHYSICAL Page 1 of 1 X X HISTORY AND PHYSICAL
--- NOTE | ~2017-01-10 | TOC ---
Unit #: [id number] #: [id number] Patient: NIKITA GAMINO [id number] [address] [place], [place] [address] [id number] I MR#: [id number] NAME: NIKITA GAMINO ROOM: 575 Age: 56 Sex: M Admission Date: 01/10/2017 : 1960 Attending Physician: Galileo Acevedo M.D. Primary Care Physician: Randy Mcnulty M.D. TRANSFER OF CARE SUMMARY ADDENDUM TO TRANSFER CARE SUMMARY BY DR PAGAN Patient's cellulitis resolved with Keflex. The patient is being discharged without further need of antibiotics. The patient's Choi catheter was removed, and he is urinating without difficulty. The patient was noted to have some compression fractures on MRI of his T and L spines. He was evaluated by Interventional Radiology, and thought not to be a candidate for kyphoplasty. The patient underwent stress test and was noted to have aortic valve insufficiency and dilated aortic root. As a result, the patient was referred to Dr. Chowdhury for aortic valve replacement and possible aortic conduit. During his stay, the patient underwent ultrasound of the lower extremity for some swelling and no DVT was noted. However, there was notation of an ovoid hypoechoic structure that was 2.5 x 1.1 x 4 cm. Unclear what this represented, so CT of the lower extremity was performed. The CT was noted to be normal, and no corresponding structure was noted. Given the above, the patient is being discharged home at this time. DISCHARGE MEDICATIONS 1. Lisinopril 10 mg p.o. daily. 2. Atenolol 25 mg daily. 3. Lasix 20 mg daily. 4. Aldactone 12.5 mg p.o. daily. 5. [place] 7.5/325 one p.o. q.4 hours p.r.n. 6. Vitamin B12 folate 500 mg p.o. daily. FOLLOW UP The patient will follow up with Dr. Chowdhury as mentioned above. Additionally, the patient should see Dr Bates on April 29 at 3 p.m. Dictated by... Galileo Acevedo M.D. CAM/jt Unit #: [id number] #: [id number] Patient: NIKITA GAMINO TD: 01/16/2017 23:47 JOB #: [id number] TRANSFER OF CARE SUMMARY Page 1 of 1 X Galileo Acevedo MD TRANSFER OF CARE SUMMARY
--- NOTE | ~2017-01-10 | CT93 ---
[facility] A Service of [facility] RADIOLOGY TEXT RESULTS PATIENT: NIKITA GAMINO LOCATION: [facility] [id number] : 58 UNIT #: [id number] AGE: [address]: Galileo Acevedo MD SEX: M ORDER DR: [id number] [facility] [address]. [place], [place] [address] [id number] MR#: [id number] #: [id number] NAME: NIKITA GAMINO. : 1960 SEX: M STUDY DATE/TIME: 01/15/2017 17:53 UNIT: [facility] ROOM: [facility] STUDY DESCRIPTION: CT Lower Ext Rt W Cont Attending Physician: Galileo Acevedo M.D. Ordering Physician: Galileo Acevedo M.D. Primary Care Physician: Randy Mcnulty M.D. MEDICAL IMAGING REPORT This report is preliminary unless electronic signature is present EXAM CT right lower extremity with contrast, 01/15/2017 HISTORY A 56-year-old male with right lower extremity edema and swelling for 4 weeks. Medial right calf pain for 5 weeks. A questionable hypoechoic structure adjacent to the lateral malleolus seen on recent ultrasound. COMPARISON Right lower extremity nonvascular ultrasound 01/14/2017 TECHNIQUE Helical scan performed through the lower leg and hind foot following administration of IV contrast. Coronal and sagittal reformatted images. This CT exam was performed with one or more of the following radiation dose reduction techniques: automatic exposure control, adjustment of mA and/or kV according to patient size, and iterative reconstruction. FINDINGS There is mild generalized subcutaneous soft tissue edema throughout the visualized lower leg and hindfoot. No drainable fluid collections are identified. No abnormal structures are seen adjacent to the lateral malleolus. The peroneal tendons are noted and appear grossly unremarkable by CT. If there is concern for peroneal tendon injury, then further evaluation with MRI may be considered. No acute bony abnormality. Talar dome intact. No significant ankle effusion. IMPRESSION 1. No CT evidence of soft tissue or bony abnormality in the region of the lateral malleolus. The peroneal tendons are visualized and appear grossly unremarkable by CT. There is clinical concern for STS. [facility] A Service of [facility] RADIOLOGY TEXT RESULTS PATIENT: NIKITA GAMINO LOCATION: [facility] [id number] : 58 UNIT #: [id number] AGE: [address]: Galileo Acevedo MD SEX: M ORDER DR: peroneal tendon injury, then MRI may be considered. 2. Mild generalized subcutaneous soft tissue edema throughout the visualized lower leg and hindfoot, nonspecific. This could be secondary to cellulitis, vascular insufficiency, congestive failure, or lymphedema, depending on the clinical setting. 3. No acute bony abnormality. Dictated by... Patricio Valverde M.D. THIS IS AN ELECTRONICALLY VERIFIED REPORT Patricio Valverde M.D. at 01/16/2017 10:57 PM Narciso TD: 01/15/2017 22:10 JOB #: [id number] MEDICAL IMAGING REPORT Page 1 of 1 COPY
--- NOTE | ~2017-01-10 | EKG ---
PATIENT: NIKITA GAMINO UNIT #: [id number] Ventricular Rate: 92 BPM Atrial Rate: 92 BPM P-R Interval: 190 ms QRS Duration: 96 ms Q-T Interval: 386 ms QTC Calculation(Bezet): 477 ms P [place]: 47 degrees Calculated R [place]: -14 degrees Calculated T [place]: -4 degrees Diagnosis Line: Normal sinus rhythm Diagnosis Line: Voltage criteria for left ventricular hypertrophy Diagnosis Line: Nonspecific ST abnormality Diagnosis Line: Abnormal ECG Diagnosis Line: When compared with ECG of 05-JAN-2017 08:23, Diagnosis Line: No significant change was found Diagnosis Line: Confirmed by MATEUS NO MD ([id number]) on 01/10/2017 Diagnosis Line: 10:38:11 PM INTERPRETING MD: ONEAL DELANEY
[2017-01-10 13:19] LABS: BASOPHIL% 0.2 % (0-2.5); EOSINOPHIL% 0.2 % (0.0-7.0); HEMATOCRIT 27.2 % (38.0-50.0); HEMOGLOBIN 9.3 gm/dL (13.0-16.0); LYMPHOCYTE# 0.6 X10e3 (1.0-3.5); LYMPHOCYTE% 7.6 % (17.0-45.0); MEAN CELL VOLUME 95.1 FL (83-96); MEAN CORPUSCULAR HEMOGLOBIN 32.6 PG (28-34); MEAN CORPUSCULAR HGB CONC 34.3 g/dL (30-36); MEAN PLATELET VOLUME 7.4 FL (6.5-11.5); MONOCYTE# 0.6 X10e3 (0-1.0); MONOCYTE% 8.5 % (3.0-12.0); NEUTROPHIL# 6.2 X10e3 (1.5-7.1); NEUTROPHIL% 83.5 % (40-75); PLATELET COUNT 274 X10e3 (140-420); RED BLOOD COUNT 2.86 X10e (3.90-5.60); RED CELL DISTRIBUTION WIDTH 12.8 % (11.0-15.5); WHITE BLOOD COUNT 7.4 X10e3 (4.0-10.5)
[2017-01-10 13:20] LABS: DIFF IND NO
[2017-01-10 14:00] LABS: POC - CKMB 1.6 ng/mL (0.0-7.9); POC - TROPONIN <0.05 ng/mL (<=0.05)
[2017-01-10 14:04] LABS: ALBUMIN SERUM 3.3 g/dL (3.5-5.0); BILIRUBIN, DIRECT 0.6 mg/dL (0.0-0.2); BILIRUBIN,INDIRECT 1.8 mg/dL (0.0-0.9); BILIRUBIN,TOTAL 2.4 mg/dL (0.2-2.0); CALCIUM SERUM 8.4 mg/dL (8.4-10.2); GLOM FILT RATE Estimated 83.2 mL/min (>60); POTASSIUM 3.8 mmol/L (3.5-5.1); URIC ACID 6.1 mg/dL (2.6-7.2)
[2017-01-10 14:51] LABS: INR 1.4; PARTIAL THROMBOPLASTIN TIME 37.8 SECONDS (23.5-31.3); PROTHROMBIN TIME (PATIENT) 14.5 SECONDS (9.6-11.5)
[2017-01-10] MEDS ORDERED: HYDROCODON-ACE1 EAC9 PO (19:01)
[2017-01-10] MEDS ORDERED: CLEOCIN HCL300 M1 PO (19:01)
[2017-01-10] MEDS ORDERED: VITAMIN B12-FO1 EACH PO (19:02)
[2017-01-10] MEDS ORDERED: ORACEA40 MG PO (19:03)
[2017-01-10 20:04] LABS: POC - CKMB 1.2 ng/mL (0.0-7.9); POC - TROPONIN <0.05 ng/mL (<=0.05)
[2017-01-10 20:25] LABS: POC - CKMB 1.1 ng/mL (0.0-7.9); POC - TROPONIN <0.05 ng/mL (<=0.05)
[2017-01-10 20:26] LABS: %MB 1.9 % (0.0-4.0); MB 1.3 ng/ml
[2017-01-11 02:35] LABS: BASOPHIL% 0.7 % (0-2.5); EOSINOPHIL% 0.7 % (0.0-7.0); HEMATOCRIT 24.1 % (38.0-50.0); HEMOGLOBIN 8.2 gm/dL (13.0-16.0); LYMPHOCYTE# 0.7 X10e3 (1.0-3.5); LYMPHOCYTE% 13.4 % (17.0-45.0); MEAN CORPUSCULAR HEMOGLOBIN 32.5 PG (28-34); MEAN CORPUSCULAR HGB CONC 34.2 g/dL (30-36); MEAN PLATELET VOLUME 7.5 FL (6.5-11.5); MONOCYTE# 0.8 X10e3 (0-1.0); MONOCYTE% 14.9 % (3.0-12.0); NEUTROPHIL# 3.6 X10e3 (1.5-7.1); NEUTROPHIL% 70.3 % (40-75); PLATELET COUNT 263 X10e3 (140-420); RED BLOOD COUNT 2.53 X10e (3.90-5.60); WHITE BLOOD COUNT 5.1 X10e3 (4.0-10.5)
[2017-01-11 02:39] LABS: DIFF IND NO
[2017-01-11 03:02] LABS: CALCIUM SERUM 7.9 mg/dL (8.4-10.2); GLOM FILT RATE Estimated 83.2 mL/min (>60); POTASSIUM 3.3 mmol/L (3.5-5.1)
[2017-01-11 03:21] LABS: CK TOTAL 54 IU/L (36-174)
[2017-01-12] LABS: URINE APPEARANCE CLEAR; URINE BLOOD 1+ (NEG); URINE COLOR DK YELLOW; URINE GLUCOSE NEG (NEG); URINE KETONE 1+ (NEG); URINE LEUKOCYTE ESTERASE 1+ (NEG); URINE NITRATE NEG (NEG); URINE PROTEIN 1+ (NEG); URINE SPECIFIC GRAVITY 1.027 (1.003-1.035)
[2017-01-12 00:03] LABS: URINE BACTERIA AUWI NEG (NEGATIVE); URINE SQUAMOUS EPITHELIAL CELL OCC /[HPF]
[2017-01-12 00:08] LABS: URINE BILIRUBIN POS (NEG)
[2017-01-12 05:08] LABS: HEMATOCRIT 25.5 % (38.0-50.0); HEMOGLOBIN 8.6 gm/dL (13.0-16.0); MEAN CELL VOLUME 94.8 FL (83-96); MEAN CORPUSCULAR HEMOGLOBIN 31.9 PG (28-34); MEAN CORPUSCULAR HGB CONC 33.6 g/dL (30-36); MEAN PLATELET VOLUME 7.6 FL (6.5-11.5); RED BLOOD COUNT 2.69 X10e (3.90-5.60); RED CELL DISTRIBUTION WIDTH 12.7 % (11.0-15.5); WHITE BLOOD COUNT 4.1 X10e3 (4.0-10.5)
[2017-01-12 05:56] LABS: ALBUMIN SERUM 2.7 g/dL (3.5-5.0); BILIRUBIN,TOTAL 1.7 mg/dL (0.2-2.0); BUN/CREATININE RATIO 18.57; CALCIUM SERUM 7.7 mg/dL (8.4-10.2); CREATININE SERUM 0.7 mg/dL (0.6-1.4); GLOM FILT RATE Estimated 104.8 mL/min (>60); MAGNESIUM 2.2 mg/dL (1.6-3.0); PHOSPHOROUS 2.8 mg/dL (2.5-4.6); POTASSIUM 3.7 mmol/L (3.5-5.1); PROTEIN TOTAL SERUM 5.7 g/dL (6.0-8.3)
[2017-01-13 05:55] LABS: HEMATOCRIT 25.6 % (38.0-50.0); HEMOGLOBIN 8.7 gm/dL (13.0-16.0); MEAN CELL VOLUME 93.7 FL (83-96); MEAN CORPUSCULAR HGB CONC 34.2 g/dL (30-36); MEAN PLATELET VOLUME 7.6 FL (6.5-11.5); RED BLOOD COUNT 2.73 X10e (3.90-5.60); RED CELL DISTRIBUTION WIDTH 12.4 % (11.0-15.5); WHITE BLOOD COUNT 3.8 X10e3 (4.0-10.5)
[2017-01-13 06:41] LABS: ALBUMIN SERUM 2.7 g/dL (3.5-5.0); BILIRUBIN,TOTAL 1.7 mg/dL (0.2-2.0); BUN/CREATININE RATIO 18.33; CALCIUM SERUM 7.9 mg/dL (8.4-10.2); CREATININE SERUM 0.6 mg/dL (0.6-1.4); GLOM FILT RATE Estimated 111.7 mL/min (>60); MAGNESIUM 2.2 mg/dL (1.6-3.0); POTASSIUM 3.4 mmol/L (3.5-5.1); PROTEIN TOTAL SERUM 5.8 g/dL (6.0-8.3)
[2017-01-14 10:14] LABS: BASOPHIL# 0.1 X10e3 (0-0.3); BASOPHIL% 0.8 % (0-2.5); EOSINOPHIL# 0.2 X10e3 (0-0.7); EOSINOPHIL% 2.4 % (0.0-7.0); HEMATOCRIT 32.7 % (38.0-50.0); LYMPHOCYTE# 0.6 X10e3 (1.0-3.5); LYMPHOCYTE% 8.2 % (17.0-45.0); MEAN CELL VOLUME 94.3 FL (83-96); MEAN CORPUSCULAR HEMOGLOBIN 31.6 PG (28-34); MEAN CORPUSCULAR HGB CONC 33.4 g/dL (30-36); MEAN PLATELET VOLUME 7.5 FL (6.5-11.5); MONOCYTE# 0.6 X10e3 (0-1.0); MONOCYTE% 7.3 % (3.0-12.0); NEUTROPHIL# 6.3 X10e3 (1.5-7.1); NEUTROPHIL% 81.3 % (40-75); RED BLOOD COUNT 3.46 X10e (3.90-5.60); RED CELL DISTRIBUTION WIDTH 13.1 % (11.0-15.5)
[2017-01-14 10:32] LABS: PARTIAL THROMBOPLASTIN TIME 45.3 SECONDS (23.5-31.3); PROTHROMBIN TIME (PATIENT) 22.2 SECONDS (9.6-11.5)
[2017-01-14 10:35] LABS: WHITE BLOOD COUNT 7.8 X10e3 (4.0-10.5)
[2017-01-14 10:36] LABS: HEMOGLOBIN 10.9 gm/dL (13.0-16.0); PLATELET COUNT 430 X10e3 (140-420)
[2017-01-14 10:41] LABS: DIFF IND NO
[2017-01-14 10:45] LABS: BUN/CREATININE RATIO 22.85; CALCIUM SERUM 8.8 mg/dL (8.4-10.2); CREATININE SERUM 0.7 mg/dL (0.6-1.4); GLOM FILT RATE Estimated 104.8 mL/min (>60); POTASSIUM 4.1 mmol/L (3.5-5.1)
[2017-01-14 15:08] LABS: INR 2.2; PROTHROMBIN TIME (PATIENT) 23.3 SECONDS (9.6-11.5)
[2017-01-14 20:59] LABS: U PROTIEN QUANT CALCULATION 0.18 GM/24H (0.10-0.15)
[2017-01-15 06:30] LABS: INR 1.2; PROTHROMBIN TIME (PATIENT) 12.7 SECONDS (9.6-11.5)
[2017-01-15 06:51] LABS: ALBUMIN SERUM 3.1 g/dL (3.5-5.0); BILIRUBIN,TOTAL 2.2 mg/dL (0.2-2.0); BUN/CREATININE RATIO 22.85; CALCIUM SERUM 8.4 mg/dL (8.4-10.2); CREATININE SERUM 0.7 mg/dL (0.6-1.4); GLOM FILT RATE Estimated 104.8 mL/min (>60); POTASSIUM 4.2 mmol/L (3.5-5.1); PROTEIN TOTAL SERUM 6.4 g/dL (6.0-8.3)
[2017-01-16 04:38] LABS: URINE APPEARANCE CLEAR; URINE BILIRUBIN NEG (NEG); URINE BLOOD 3+ (NEG); URINE COLOR DK YELLOW; URINE GLUCOSE NEG (NEG); URINE KETONE TRACE (NEG); URINE LEUKOCYTE ESTERASE TRACE (NEG); URINE NITRATE NEG (NEG); URINE PROTEIN TRACE (NEG); URINE SPECIFIC GRAVITY >1.099 (1.003-1.035); URINE UROBILINOGEN 0.2 MG/DL (NEG)
[2017-01-16 04:40] LABS: URBCS1 AUWI 100-200 /[HPF] (0-2); URINE BACTERIA AUWI NEG (NEGATIVE); URINE SQUAMOUS EPITHELIAL CELL MOD /[HPF]
[2017-01-16 04:49] LABS: U HYALINE CASTS AUWI 0-2 /[LPF]
[2017-01-16 09:50] LABS: CREATININE SERUM 0.7 mg/dL (0.6-1.4); GLOM FILT RATE Estimated 104.8 mL/min (>60)
[2017-01-16] MEDS ORDERED: ALDACTONE25 MG PO (15:42)
[2017-01-16] MEDS ORDERED: LISINOPRIL10 MG PO (15:43)
[2017-01-16] MEDS ORDERED: ATENOLOL25 MG PO (15:44)
[2017-01-16] MEDS ORDERED: LASIX20 MG PO (15:45)
== END 2017-01-16 18:37 | disposition home or self-care (01) | DRG 287 ==
LOC: CED 11:28 → C5C 17:40 → CED 17:40 → CEDOF 17:40 → CED 18:04 → CEDOF 18:04 → C5C 01-11 09:36
PROVIDERS: Emergency Medicine; Internal Medicine; Internal Medicine Cardiovascular Disease; Nurse Practitioner; Physician Assistant Medical
PROC: B32TYZZ Computerized Tomography (CT Scan) of Left Pulmonary Artery using Other Contrast (ICD-10-PCS; principal; 2017-01-10)
PROC: B32SYZZ Computerized Tomography (CT Scan) of Right Pulmonary Artery using Other Contrast (ICD-10-PCS; 2017-01-10)
PROC: B24BYZZ Ultrasonography of Heart with Aorta using Other Contrast (ICD-10-PCS; 2017-01-11)
PROC: 30233L1 Transfusion of Nonautologous Fresh Plasma into Peripheral Vein, Percutaneous Approach (ICD-10-PCS; 2017-01-14)
PROC: 30233K1 Transfusion of Nonautologous Frozen Plasma into Peripheral Vein, Percutaneous Approach (ICD-10-PCS; 2017-01-14)
PROC: 4A023N6 Measurement of Cardiac Sampling and Pressure, Right Heart, Percutaneous Approach (ICD-10-PCS; 2017-01-15)
PROC: B211YZZ Fluoroscopy of Multiple Coronary Arteries using Other Contrast (ICD-10-PCS; 2017-01-15)
PROC: B215YZZ Fluoroscopy of Left Heart using Other Contrast (ICD-10-PCS; 2017-01-15)
DX: I08.0 Rheumatic disorders of both mitral and aortic valves (principal); I50.9 Heart failure, unspecified; L03.115 Cellulitis of right lower limb; E87.1 Hypo-osmolality and hyponatremia; M48.54XA Collapsed vertebra, not elsewhere classified, thoracic region, initial encounter for fracture; R17 Unspecified jaundice; M48.56XA Collapsed vertebra, not elsewhere classified, lumbar region, initial encounter for fracture; E87.70 Fluid overload, unspecified; F10.10 Alcohol abuse, uncomplicated; D50.9 Iron deficiency anemia, unspecified; R07.9 Chest pain, unspecified; M10.9 Gout, unspecified; I71.9 Aortic aneurysm of unspecified site, without rupture; E87.6 Hypokalemia; R33.9 Retention of urine, unspecified; M66.0 Rupture of popliteal cyst
CPT/HCPCS: 36415; 71010; 71275; 72148; 73701; 76140; 76705; 76881; 80048; 80053; 80076; 81003; 82550; 82553; 82565; 82810; 82947; 83735; 83880; 84100; 84156; 84484; 84550; 85025; 85027; 85379; 85610; 85730; 86900; 86901; 87040; 93005; 93306; 99285; C1769; C1887; C1894; J0690; J1644; J1940; J2250; J3010; J3430; J3475; J3480; P9059; Q9967